=== PATIENT | male | born 1975 | race Caucasian/White ===

== ENCOUNTER 2016-05-06 11:13 | Emergency (ER) | payer OTHER ==
[~2016-05-06] VITALS: Ht 162.6 cm; Wt 70.3 kg
[2016-05-06] MEDS ORDERED: LAMICTAL XR100 M1 PO (11:35)
[2016-05-06] MEDS ORDERED: KEPPRA PO (11:35)
--- NOTE | 2016-05-06 11:44 | ED CARDIAC/CP/PALPITATIONS ---
History of Present Illness General Chief Complaint: Chest Pain Stated Complaint: CP SINCE THIS AM Source: patient Exam Limitations: no limitations Vital Signs & Intake/Output Vital Signs & Intake/Output Vital Signs Date Time Temp Pulse Resp B/P Pulse O2 O2 Flow FiO2 Ox Delivery Rate 05/06 1339 72 18 132/66 98 Room Air 05/06 1246 99 Room Air 05/06 1245 73 18 127/70 98 Room Air 05/06 1239 73 16 124/69 99 Room Air 05/06 1207 77 16 145/83 99 Room Air 05/06 1156 76 16 132/79 99 Room Air 05/06 1117 97.5 72 16 150/80 98 Room Air Allergies Coded Allergies: No Known Allergies (05/06/16) Reconcile Medications Lamotrigine (Lamictal XR) 100 MG TAB.ER.24 2 TAB PO DAILY SEIZURES (Reported) Levetiracetam (Keppra XR) 500 MG TAB.ER.24H 1 TAB PO DAILY SEIZURES (Reported ) Triage Note: PT STATES HAVING CHEST PAIN TODAY, PT POINTING TO EPIGASTRIC AREA STATES HE TOOK AN ANTACID AND IT HAD NO EFFECT. PT DENIES SOB NON RADIATING PAIN Triage Nurses Notes Reviewed? 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 He reported that the pain woke him out of sleep at approximately 5:00 this morning. He rated the pain initially at a 6 out of 10 and located in the center of his chest. He reported that the pain has been nonradiating and constant since onset. He reported that it feels like a pressure. He reported that the pain is currently a 2 out of 10 and dull. He reported that he does not have any cardiac history or any known family history of cardiac disease. This patient does not smoke. He reported that he did wake up feeling nauseous, but attributed this to not having eaten anything. The patient denied any diaphoresis, headaches, visual changes, jaw pain, arm pain, numbness or tingling in his extremities, difficulty breathing, palpitations, abdominal pain, nausea, or vomiting. (NICOLLE ACEVEDO,NAKIA) Past History Travel History Traveled to [place] past 21 day No Medical History Any Pertinent Medical History? see below for history Neurological: seizure, angioma Surgical History Surgical History: non-contributory Psychosocial History What is your primary language Moz[place]ican Tobacco Use: Never used ETOH Use: occasional use Illicit Drug Use: denies illicit drug use Family History Hx Contributory? No (NAKIA VALVERDE PA-C) Review of Systems Review of Systems Constitutional: Reports: no symptoms. EENTM: Reports: no symptoms. Respiratory: Reports: no symptoms. Cardiovascular: Reports: see HPI. GI: Reports: see HPI. Genitourinary: Reports: no symptoms. Musculoskeletal: Reports: no symptoms. Skin: Reports: no symptoms. Neurological/Psychological: Reports: no symptoms. All Other Systems: Reviewed and Negative (NAKIA VALVERDE PA-C) Physical Exam Physical Exam Cardiovascular: regular rate/rhythm, normal peripheral pulses, no murmurs, rubs, or gallops Comments: Well-developed well-nourished person in no acute distress HEENT: Normal EENT exam, head normocephalic, moist mucous membranes PERRLA bilaterally Neck: Supple, no lymphadenopathy Back: Nontender, no CVA tenderness. Full range of motion Respiratory: Chest nontender. No respiratory distress. Speaking in full sentences. Lungs clear to auscultation bilaterally with no wheezes, rales, or rhonchi Extremity: Normal and equal pulses Neuro: Alert oriented x3, motor sensory normal, cranial nerves II through XII grossly intact. Skin: No appreciable rash on exposed skin, skin is warm and dry. Psych: Mood and affect is normal, memory and judgment is normal. Core Measures ACS in differential dx? Yes Severe Sepsis Present: No Septic Shock Present: No (NAKIA VALVERDE PA-C) Progress Differential Diagnosis: AMI, aortic dissection, atrial fibrillation, costochondritis, hyperkalemia, hyperthyroid, hyperventilation, myocarditis, pancreatitis, pericarditis, pneumonia, pneumothorax, PSVT, pulmonary embolism, PUD/GERD, PVCs/PACs, sepsis, unstable angina Plan of Care: Orders Procedure Date/time Status THYROID STIMULATING HORMONE 05/06 1148 Complete TROPONIN LEVEL 05/06 1148 Complete LIPID PANEL 05/06 1148 Complete FREE T4 05/06 1148 Complete COMPREHENSIVE METABOLIC PANEL 05/06 1148 Complete CBC WITHOUT DIFFERENTIAL 05/06 1148 Complete EKG 05/06 1114 Active Current Medications Sig/Ruma Start time Last Medication Dose Stop Time Status Admin Aspirin 325 MG ONCE ONE 05/06 1200 CAN (Aspirin) 05/06 1201 Laboratory Tests 05/06/16 1205: Anion Gap 10, Estimated GFR > 60, BUN/Creatinine Ratio 21.0, Glucose 107 H, Calcium 9.4, Total Bilirubin 0.7, AST 33, ALT 28, Alkaline Phosphatase 75, Troponin I < 0.01, Total Protein 7.8, Albumin 4.7, Globulin 3.1, Albumin/ Globulin Ratio 1.5, Triglycerides 83, Cholesterol 198, LDL Cholesterol, Calc 96, HDL Cholesterol 86 H, Cholesterol/HDL Ratio 2, TSH 1.210, Free T4 0.94, CBC w Diff NO MAN DIFF REQ, RBC 4.82, MCV 88.9, MCH 30.6, RDW 13.0, MPV 7.3 L, Gran % 45.7, Lymphocytes % 38.1, Monocytes % 12.6 H, Eosinophils % 2.9, Basophils % 0.7, Absolute Granulocytes 2.3, Absolute Lymphocytes 1.9, Absolute Monocytes 0.6 , Absolute Eosinophils 0.1, Absolute Basophils 0, PUBS MCHC 34.4 Diagnostic Imaging: Viewed by Me: Radiology Read. Discussed w/RAD: Radiology Read. CXR Impression: PATIENT: LEXY THACKER PRESENT AGE: 40 PATIENT ACCOUNT NO: [id number] : 76 LOCATION: [facility] ORDERING PHYSICIAN: NAKIA VALVERDE PA-C SERVICE DATE: 05/06/16-1148 EXAM TYPE: RAD - XRY- PORTABLE CHEST XRAY EXAMINATION: XR PORTABLE CHEST CLINICAL INFORMATION: Rule out cardiomegaly COMPARISON: 06/26/2011 TECHNIQUE: Portable AP view of the chest was obtained. FINDINGS: Heart size cannot be adequately evaluated on AP image. Recommend PA and lateral to fully evaluate. There is mild cephalization of the vasculature. No overt failure. No effusion. Lung garrett are grossly clear IMPRESSION: The heart size cannot be adequately evaluated on AP study due to projection. Recommend PA and lateral studies. Mild vascular congestion. No overt failure DICTATED BY: EVAN HUFF MD DATE/TIME DICTATED:05/06/161308 VP [employer]:JACOBY DATE/TIME TRANSCRIBED:05/06/161308 CONFIDENTIAL, DO NOT COPY WITHOUT APPROPRIATE AUTHORIZATION. <Electronically signed in Other Vendor System> SIGNED BY: EVAN HUFF MD 05/06/16 1313 Initial ED EKG: normal intervals, LVH, nonspecific ST T wave chg, 78 bpm, T-wave inversion in leads 3, aVR, and aVF, as he depression in lead V4 Comments: 05/06/2016 1:37:00 PM: I was at the patient's bedside reevaluation. He is currently resting comfortable on the stretcher and nontoxic appearing. He is in no acute distress. No change with nitroglycerin. Updated the patient on the results of his laboratory studies. No increase in white blood cell count. Chest x-ray unremarkable. No increase in troponin level. I recommended to the patient that his symptoms I would like him to stay for a second troponin level and repeat EKG 4 hours from the first troponin level draw. The patient reported that he would like to go home. He is signing out AGAINST MEDICAL ADVICE. I explained to the patient the risks with bleeding prior to his medical workup being completed. He reported that he understands and would still like to go home. (NAKIA VALVERDE PA-C) Departure Departure Disposition: LEFT AGAINST MEDICAL ADVICE Condition: Stable Clinical Impression Primary Impression: Chest pain Qualifiers: Chest pain type: unspecified Qualified Code: R07.9 - Chest pain, unspecified Referrals: TWILA AGUILAR MD PATIENT HAS NO PRIMARY CARE DR (PCP/Family) Additional Instructions: Continue to take all previously prescribed medications as directed. Please follow-up with your feed mill tender or the feed mill tender as information has been provided to you in this packet. Return immediately for any worsening symptoms or concerns. Departure Forms: Customer Survey General Discharge Information (NAKIA VALVERDE PA-C) PA/ROCK MASON Co-Sign Statement Statement: ED Attending supervision documentation- [] I saw and evaluated the patient. I have also reviewed all the pertinent lab results and diagnostic results. I agree with the findings and the plan of care as documented in the PA's/ROCK MASON's documentation. x I have reviewed the ED Record and agree with the PA's/ROCK MASON's documentation. [] Additions or exceptions (if any) to the PAs/ROCK MASON's note and plan are summarized below: [] ([facility],MONTY) Critical Care Note Critical Care Note Critical Care Time: non-applicable (NAKIA VALVERDE PA-C)
[2016-05-06 12:24] LABS: ABSOLUTE BASOPHIL COUNT 0 /CUMM (0.0-0.2); ABSOLUTE EOSINOPHIL COUNT 0.1 /CUMM (0.0-0.7); ABSOLUTE GRANULOCYTE CT 2.3 /CUMM (1.4-6.5); ABSOLUTE LYMPH COUNT 1.9 /CUMM (1.2-3.4); ABSOLUTE MONOCYTE COUNT 0.6 /CUMM (0.10-0.60); BASOPHIL % 0.7 % (0.0-2.0); EOSINOPHIL % 2.9 % (0-5); GRANULOCYTE % 45.7 % (42.2-75.2); HEMATOCRIT 42.8 % (42-52); MEAN CORPUSCULAR HGB 30.6 PG (27.0-31.0); MEAN CORPUSCULAR HGB CONC 34.4 G/DL (33.0-37.0); MEAN CORPUSCULAR VOLUME 88.9 FL (80.0-94.0); MEAN PLATELET VOLUME 7.3 FL (7.4-10.4); PLATELET COUNT 265 /CUMM (130-400); RED BLOOD CELL CT 4.82 /CUMM (4.70-6.10)
--- NOTE | 2016-05-06 13:13 | RADIOLOGY REPORT ---
EXAMINATION: XR PORTABLE CHEST CLINICAL INFORMATION: Rule out cardiomegaly COMPARISON: 06/26/2011 TECHNIQUE: Portable AP view of the chest was obtained. FINDINGS: Heart size cannot be adequately evaluated on AP image. Recommend PA and lateral to fully evaluate. There is mild cephalization of the vasculature. No overt failure. No effusion. Lung garrett are grossly clear IMPRESSION: The heart size cannot be adequately evaluated on AP study due to projection. Recommend PA and lateral studies. Mild vascular congestion. No overt failure
[2016-05-06 13:39] VITALS: BP 132/66
== END 2016-05-06 13:50 | disposition left against medical advice (07) ==
LOC: ERH 11:13
PROVIDERS: Physician Assistant
DX: R07.9 Chest pain, unspecified (principal)
CPT/HCPCS: 93005; 93010; J3490